=== PATIENT | female | born 1935 | race Caucasian/White ===

== ENCOUNTER 2020-11-11 14:44 | Observation (INO) | payer MEDICARE ==
[~2020-11-11] VITALS: Ht 160 cm; Wt 57.8 kg
[~2020-11-11 14:44] MED LIST: ASPIRIN81 MG PO; ATORVASTATIN CA10 MG PO; AUGMENTIN500 MG OR; BL ASPIRIN325 MG PO; CEPHALEXIN500 MG PO; CLINDAMYCIN150 MG PO; FOSINOPRIL20 MG OR; HYDROCHLORO25 MG/TAB PO; HYDROCHLOROT25 MG PO; LISINOPRIL20 M1 PO; NIASPAN1000 ER OR; NIASPAN500 MG PO; SIMVASTATIN20 MG PO; ST JOSEPH75 MG OR; TOPROL XL PO; ULTRAM50 MG PO; VIT C/ACEROL500 MG PO; VITAMIN D32000 UNIT PO
--- NOTE | 2020-11-11 14:49 | NUR ---
Pt to room # 8 via W/C for bedside triage
[2020-11-11] MEDS ORDERED: NORVASC5 M1 PO (15:10)
[2020-11-11] MEDS ORDERED: ISOSORB MONO30 MG PO (15:10)
[2020-11-11] MEDS ORDERED: OMEPRAZOLE DR40 MG PO (15:11)
[2020-11-11 15:58] LABS: HEMATOCRIT 33.3 % (37.0-47.0); HEMOGLOBIN 10.9 g/dl (12.0-16.0); IMMATURE GRANULOCYTES 0.2 % (0.0-5.0); MEAN CELL VOLUME 91.2 fL CALC (80.0-100.0); MEAN CORPUSCULAR HGB 29.9 pG CALC (26.0-32.0); MEAN CORPUSCULAR HGB CONC 32.7 g/dL CAL (32.0-36.0); NEUT# 4.08 thou/uL (2.00-7.15); RED BLOOD COUNT 3.65 mill/uL (4.20-5.60)
[2020-11-11 16:26] LABS: ACT PARTIAL THROMBO TIME 21.9 SECONDS (20.0-32.5); ALBUMIN 3.8 g/dL (3.2-5.0); ALKALINE PHOSPHATASE 62 u/l (38-126); AMYLASE 107 u/l (30-110); BUN 17 mg/dL (8-23); BUN/CREATININE RATIO 11 (12-20 (CALC)); CARBON DIOXIDE 24 mmol/l (22-30); CHLORIDE 106 mmol/l (95-108); CREATININE 1.6 mg/dL (0.5-1.0); GFR 31 ML/MIN (>=60 (CALC)); GFR FOR AFR.AMER. 37 ML/MIN (>=60 (CALC)); LIPASE 114 u/l (23-300); MAGNESIUM 1.2 mg/dL (1.6-2.3); PROTHROMBIN TIME 10.4 SECONDS (9.0-12.5); SGOT/AST 25 u/l (9-36); SODIUM 139 mmol/l (137-146); TOTAL PROTEIN 6.5 g/dL (6.3-8.2)
[2020-11-11 16:27] LABS: ANION GAP 13 (6-22 (CALC))
[2020-11-11 16:31] LABS: POTASSIUM 3.7 mmol/l (3.5-5.1)
--- NOTE | 2020-11-11 16:45 | NUR ---
PT ADVISED OF WAIT TIME FOR TEST RESULTS. VSS. CALL LIGHT WITHIN REACH.
--- NOTE | 2020-11-11 17:30 | NUR ---
NEED FOR MAG DISCUSSED W/PT. PT AGREED TO HAVE MAG IV FOR LOW LEVEL VIA IV.
--- NOTE | 2020-11-11 19:02 | NUR ---
REPORT PROVIDED TO MEDARDO NOLAND
--- NOTE | 2020-11-11 19:17 | NUR ---
REPORT FROM DANITZA BATRES IN ED.
--- NOTE | 2020-11-11 19:19 | NUR ---
REPORT CALLED TO KEL NURSE ON [facility] ADVISED OF ALL EVENTS AND ATTACHMENTS. PT STABLE VSS. AWARE OF PENDING ADMIT.
--- NOTE | 2020-11-11 19:30 | NUR ---
PT TO [facility] VIA WC ON TELEMETRY. IV SITE HEALTHY. VSS. NO APPARENT DISTRESS.
[2020-11-11 19:35] VITALS: BP 137/67
--- NOTE | 2020-11-11 19:35 | NUR ---
PT ARRIVED TO FLOOR VIA STRETCHER ACCOMPAINED BY ER STAFF. PT ALERT AND ORIENTED X4. AMBULATORY FROM STRETCHER TO BED. SKIN INTACT. OUTDOOR STUDIES PROFESSOR IN PLACE. IV SITE APPEARS HEALTHY, SL TO RFA. PT ADMITTED FOR CP AND LOW MAGNESIUM, PT STATES FELT WEAK FOR ABOUT A WEEK, POOR FOOD INTAKE DUE TO TROUBLE SWALLOWING. PT LIVES AT HOME WITH THAT HAS DEMENTIA. DISCUSSED POC. PT VERBALIZED UNDERSTANDING. ORIENTED TO ROOM AND CALL LIGHT SYSTEM AT THIS TIME. CALL LIGHT WITHIN REACH. WILL CONTINUE TO MONITOR.
--- NOTE | 2020-11-11 23:06 | NUR ---
PT RESTING IN BED. NO APPARENT DISTRESS NOTED. RESPIRATIONS EVEN AND UNLABORED. PT DENIES ANY PAIN OR SOB AT THIS TIME. URINE SAMPLE OBTAIN AND SENT TO LAB ORDERED IN ED. NO CURRENT WANTS OR NEEDS. CALL LIGHT WITHIN REACH. WILL CONTINUE TO MONITOR.
[2020-11-11 23:19] LABS: URINE BILIRUBIN - DIPSTICK NEGATIVE (NEGATIVE); URINE BLOOD DIPSTICK NEGATIVE (NEGATIVE); URINE COLOR YELLOW; URINE GLUCOSE - DIPSTICK NEGATIVE (NEGATIVE); URINE KETONE NEGATIVE (NEGATIVE); URINE LEUK ESTERASE NEGATIVE (NEGATIVE); URINE NITRITE - DIPSTICK NEGATIVE (Negative); URINE PROTEIN - DIPSTICK NEGATIVE (NEG-TRACE); URINE UROBILINOGEN - DIPSTICK 0.2 E.U./dL (0.2)
[2020-11-12 00:02] VITALS: BP 122/61
--- NOTE | 2020-11-12 03:11 | NUR ---
ASSESSMENT ANALYST IN ROOM AT THIS TIME TO OBTAIN LABS.
[2020-11-12 03:48] LABS: CHOLESTEROL HDL RATIO 1.9 (<4.4 (CALC)); MAGNESIUM 1.4 mg/dL (1.6-2.3)
--- NOTE | 2020-11-12 04:34 | NUR ---
PT RESTING IN BED WITH EYES CLOSED. NO APPARENT DISTRESS NOTED. RESPIRATIONS EVEN AND UNLABORED. HAND PACKER/PACKAGER IN PLACE. CALL LIGHT WITHIN REACH. WILL CONTINUE TO MONITOR.
[2020-11-12 04:45] VITALS: BP 120/49
--- NOTE | 2020-11-12 08:03 | NUR ---
PATIENT IS EATING BREAKFAST WITH NO S/S OF DISTRESS NOTED. ASSESSMENT DONE. PATIENT DENIES PAIN AT THIS TIME. RESPS EVEN AND UNLABORED. PATIENT DENIES ANY NEEDS AT THIS TIME. SAFETY PRECAUTIONS REINFORCED AND CALL LIGHT IN REACH.
[2020-11-12 08:20] VITALS: BP 150/68
[2020-11-12] MEDS ORDERED: MAG OXIDE400 MG PO (09:49)
[2020-11-12 11:14] VITALS: BP 117/65
--- NOTE | 2020-11-12 13:34 | NUR ---
Discharge instructions given. Patient verbalizes understanding of same. Discharged in stable condition via Wheelchair to Home with staff. All belongings sent with pt.
== END 2020-11-12 13:34 | disposition home or self-care (01) ==
LOC: ED 14:44 → ED-I 18:16 → ED 18:25 → MS2 18:26
PROVIDERS: ADMIT Internal Medicine; ATTEND Internal Medicine
DX: R07.9 Chest pain, unspecified (principal); R55 Syncope and collapse; E83.42 Hypomagnesemia; I71.4 Abdominal aortic aneurysm, without rupture; I10 Essential (primary) hypertension; E78.5 Hyperlipidemia, unspecified; K21.9 Gastro-esophageal reflux disease without esophagitis; Z85.038 Personal history of other malignant neoplasm of large intestine; Z20.828 Contact with and (suspected) exposure to other viral communicable diseases
CPT/HCPCS: J3475

== ENCOUNTER 2022-07-08 22:32 | Emergency (ER) | payer MEDICARE ==
[~2022-07-08] VITALS: Ht 160 cm; Wt 48.1 kg
[~2022-07-08 22:32] MED LIST changes: +ISOSORB MONO30 MG PO; +MAG OXIDE400 MG PO; +NORVASC5 M1 PO; +OMEPRAZOLE DR40 MG PO
[2022-07-08 22:47] VITALS: BP 197/86
[2022-07-08 23:15] VITALS: BP 168/71
[2022-07-08 23:23] LABS: HEMATOCRIT 31.8 % (37.0-47.0); HEMOGLOBIN 10.3 g/dl (12.0-16.0); MEAN CORPUSCULAR HGB 30.1 pG CALC (26.0-32.0); MEAN CORPUSCULAR HGB CONC 32.4 g/dL CAL (32.0-36.0); NEUT# 2.53 thou/uL (2.00-7.15); RED BLOOD COUNT 3.42 mill/uL (4.20-5.60); RED CELL DISTRI WIDTH 14.7 % (11.5-15.5)
[2022-07-08 23:37] LABS: ALBUMIN 3.9 g/dL (3.2-5.0); BILIRUBIN, TOTAL 0.4 mg/dL (0.0-1.4); CREATININE 1.3 mg/dL (0.5-1.0); POTASSIUM 4.1 mmol/l (3.5-5.1); TOTAL PROTEIN 6.8 g/dL (6.3-8.2)
[2022-07-09 00:38] VITALS: BP 159/82
[2022-07-09 01:06] VITALS: BP 188/89
[2022-07-09 01:20] VITALS: BP 168/85
== END 2022-07-09 01:20 ==
LOC: ED 22:32
PROVIDERS: Emergency Medicine
PROC: 2W38X1Z Immobilization of Right Upper Extremity using Splint (ICD-10-PCS; principal; 2022-07-08)
PROC: 0HQLXZZ Repair Left Lower Leg Skin, External Approach (ICD-10-PCS; 2022-07-08)
DX: S42.201A Unspecified fracture of upper end of right humerus, initial encounter for closed fracture (principal); S81.812A Laceration without foreign body, left lower leg, initial encounter; I10 Essential (primary) hypertension; W01.0XXA Fall on same level from slipping, tripping and stumbling without subsequent striking against object, initial encounter; Y92.009 Unspecified place in unspecified non-institutional (private) residence as the place of occurrence of the external cause

== ENCOUNTER 2022-08-04 16:43 | Emergency (ER) | payer MEDICARE ==
[2022-08-04] VITALS (16 sets, daily range): BP systolic 176–201; BP diastolic 79–98
[~2022-08-04] VITALS: Ht 160 cm; Wt 48.6 kg
[2022-08-04 18:12] LABS: HEMATOCRIT 30.1 % (37.0-47.0); HEMOGLOBIN 9.7 g/dl (12.0-16.0); IMMATURE GRANULOCYTES 0.2 % (0.0-5.0); MEAN CELL VOLUME 99.3 fL CALC (80.0-100.0); MEAN CORPUSCULAR HGB CONC 32.2 g/dL CAL (32.0-36.0); NEUT# 4.08 thou/uL (2.00-7.15); RED BLOOD COUNT 3.03 mill/uL (4.20-5.60); RED CELL DISTRI WIDTH 16.1 % (11.5-15.5)
[2022-08-04 18:26] LABS: ALBUMIN 4.1 g/dL (3.2-5.0); CREATININE 1.1 mg/dL (0.5-1.0); POTASSIUM 4.3 mmol/l (3.5-5.1); TOTAL PROTEIN 6.8 g/dL (6.3-8.2)
[2022-08-04] MEDS ORDERED: LORTAB 1010 MG PO (20:45)
== END 2022-08-04 21:17 | disposition home or self-care (01) ==
LOC: ED 16:43
PROVIDERS: Family Medicine
PROC: 2W38X1Z Immobilization of Right Upper Extremity using Splint (ICD-10-PCS; principal; 2022-08-04)
DX: S42.291A Other displaced fracture of upper end of right humerus, initial encounter for closed fracture (principal); I10 Essential (primary) hypertension; X58.XXXA Exposure to other specified factors, initial encounter; Z86.718 Personal history of other venous thrombosis and embolism; Z85.038 Personal history of other malignant neoplasm of large intestine

== ENCOUNTER 2022-08-08 08:08 | Inpatient (IN) | payer MEDICARE ==
[~2022-08-08] VITALS: Ht 160 cm; Wt 54.0 kg
[2022-08-08] VITALS (14 sets, daily range): BP systolic 154–198; BP diastolic 52–80
[~2022-08-08 08:08] MED LIST changes: +LORTAB 1010 MG PO
[2022-08-08 08:43] LABS: HEMATOCRIT 29.7 % (37.0-47.0); HEMOGLOBIN 9.8 g/dl (12.0-16.0); IMMATURE GRANULOCYTES 0.1 % (0.0-5.0); MEAN CELL VOLUME 96.1 fL CALC (80.0-100.0); MEAN CORPUSCULAR HGB 31.7 pG CALC (26.0-32.0); NEUT# 5.23 thou/uL (2.00-7.15); RED BLOOD COUNT 3.09 mill/uL (4.20-5.60); RED CELL DISTRI WIDTH 16.1 % (11.5-15.5)
[2022-08-08 08:59] LABS: ALBUMIN 4.4 g/dL (3.2-5.0); ALKALINE PHOSPHATASE 70 u/l (38-126); ANION GAP 13 (6-22 (CALC)); BILIRUBIN, TOTAL 0.9 mg/dL (0.0-1.4); BUN 22 mg/dL (8-23); BUN/CREATININE RATIO 22 (12-20 (CALC)); CARBON DIOXIDE 30 mmol/l (22-30); CHLORIDE 93 mmol/l (95-108); GFR FOR AFR.AMER. > 60 ML/MIN (>=60 (CALC)); GFR OTHER RACES 53 ML/MIN (>=60 (CALC)); LIPASE 170 u/l (23-300); MAGNESIUM 1.5 mg/dL (1.6-2.3); POTASSIUM 4.2 mmol/l (3.5-5.1); SGOT/AST 23 u/l (9-36); SODIUM 131 mmol/l (137-146); TOTAL PROTEIN 7.2 g/dL (6.3-8.2)
[2022-08-08 11:19] LABS: URINE BILIRUBIN - DIPSTICK NEGATIVE (NEGATIVE); URINE BLOOD DIPSTICK NEGATIVE (NEGATIVE); URINE COLOR YELLOW; URINE GLUCOSE - DIPSTICK NEGATIVE (NEGATIVE); URINE KETONE TRACE mg/dL (NEGATIVE); URINE LEUK ESTERASE NEGATIVE (NEGATIVE); URINE PROTEIN - DIPSTICK NEGATIVE (NEG-TRACE); URINE UROBILINOGEN - DIPSTICK 0.2 E.U./dL (0.2)
[2022-08-08 11:20] LABS: URINE NITRITE - DIPSTICK NEGATIVE (Negative)
[2022-08-08] MEDS ORDERED: BUPROPION150 M3 PO (13:10)
[2022-08-08] MEDS ORDERED: CVS STOOL SOFT100 MG PO (13:14)
[2022-08-09] VITALS (8 sets, daily range): BP systolic 129–195; BP diastolic 59–69
[2022-08-09 07:24] LABS: HEMOGLOBIN 10.7 g/dl (12.0-16.0); IMMATURE GRANULOCYTES 0.2 % (0.0-5.0); MEAN CELL VOLUME 94.4 fL CALC (80.0-100.0); MEAN CORPUSCULAR HGB 31.6 pG CALC (26.0-32.0); MEAN CORPUSCULAR HGB CONC 33.4 g/dL CAL (32.0-36.0); NEUT# 4.53 thou/uL (2.00-7.15); RED BLOOD COUNT 3.39 mill/uL (4.20-5.60); RED CELL DISTRI WIDTH 16.2 % (11.5-15.5)
[2022-08-09 07:42] LABS: ALBUMIN 4.2 g/dL (3.2-5.0); ALKALINE PHOSPHATASE 66 u/l (38-126); ANION GAP 11 (6-22 (CALC)); BILIRUBIN, TOTAL 0.8 mg/dL (0.0-1.4); BUN 22 mg/dL (8-23); BUN/CREATININE RATIO 24 (12-20 (CALC)); C-REACTIVE PROTEIN 1.3 mg/dL (0-0.9); CARBON DIOXIDE 30 mmol/l (22-30); CHLORIDE 95 mmol/l (95-108); CREATININE 0.9 mg/dL (0.5-1.0); GFR FOR AFR.AMER. > 60 ML/MIN (>=60 (CALC)); GFR OTHER RACES 60 ML/MIN (>=60 (CALC)); POTASSIUM 4.2 mmol/l (3.5-5.1); SGOT/AST 25 u/l (9-36); SODIUM 132 mmol/l (137-146); TOTAL PROTEIN 6.4 g/dL (6.3-8.2)
[2022-08-10] VITALS (8 sets, daily range): BP systolic 155–196; BP diastolic 56–80
[2022-08-10 05:19] LABS: HEMATOCRIT 31.4 % (37.0-47.0); HEMOGLOBIN 10.6 g/dl (12.0-16.0); IMMATURE GRANULOCYTES 0.2 % (0.0-5.0); MEAN CORPUSCULAR HGB 31.7 pG CALC (26.0-32.0); MEAN CORPUSCULAR HGB CONC 33.8 g/dL CAL (32.0-36.0); NEUT# 5.03 thou/uL (2.00-7.15); RED BLOOD COUNT 3.34 mill/uL (4.20-5.60); RED CELL DISTRI WIDTH 16.7 % (11.5-15.5)
[2022-08-10 05:45] LABS: ALBUMIN 3.4 g/dL (3.2-5.0); ALKALINE PHOSPHATASE 55 u/l (38-126); ANION GAP 9 (6-22 (CALC)); BILIRUBIN, TOTAL 0.7 mg/dL (0.0-1.4); BUN 19 mg/dL (8-23); BUN/CREATININE RATIO 23 (12-20 (CALC)); CARBON DIOXIDE 32 mmol/l (22-30); CHLORIDE 97 mmol/l (95-108); CREATININE 0.9 mg/dL (0.5-1.0); GFR FOR AFR.AMER. > 60 ML/MIN (>=60 (CALC)); GFR OTHER RACES 60 ML/MIN (>=60 (CALC)); MAGNESIUM 2.1 mg/dL (1.6-2.3); SGOT/AST 20 u/l (9-36); SODIUM 133 mmol/l (137-146); TOTAL PROTEIN 5.4 g/dL (6.3-8.2)
[2022-08-11] VITALS (11 sets, daily range): BP systolic 152–186; BP diastolic 66–91
[2022-08-11 05:55] LABS: HEMATOCRIT 30.3 % (37.0-47.0); IMMATURE GRANULOCYTES 0.2 % (0.0-5.0); MEAN CELL VOLUME 95.9 fL CALC (80.0-100.0); MEAN CORPUSCULAR HGB 31.6 pG CALC (26.0-32.0); NEUT# 3.48 thou/uL (2.00-7.15); RED BLOOD COUNT 3.16 mill/uL (4.20-5.60); RED CELL DISTRI WIDTH 16.4 % (11.5-15.5)
[2022-08-11 06:14] LABS: ALBUMIN 3.5 g/dL (3.2-5.0); ALKALINE PHOSPHATASE 65 u/l (38-126); ANION GAP 8 (6-22 (CALC)); BILIRUBIN, TOTAL 0.7 mg/dL (0.0-1.4); BUN 16 mg/dL (8-23); BUN/CREATININE RATIO 18 (12-20 (CALC)); C-REACTIVE PROTEIN 1.5 mg/dL (0-0.9); CARBON DIOXIDE 30 mmol/l (22-30); CHLORIDE 98 mmol/l (95-108); CREATININE 0.9 mg/dL (0.5-1.0); GFR FOR AFR.AMER. > 60 ML/MIN (>=60 (CALC)); GFR OTHER RACES 60 ML/MIN (>=60 (CALC)); POTASSIUM 3.8 mmol/l (3.5-5.1); SGOT/AST 20 u/l (9-36); SODIUM 133 mmol/l (137-146); TOTAL PROTEIN 5.6 g/dL (6.3-8.2)
[2022-08-12] VITALS (7 sets, daily range): BP systolic 134–173; BP diastolic 62–84
[2022-08-12] MEDS ORDERED: LORTAB 1010 MG PO (12:53)
[2022-08-13 00:12] VITALS: BP 144/68
[2022-08-13 04:22] VITALS: BP 163/72
[2022-08-13 05:29] LABS: HEMOGLOBIN 8.3 g/dl (12.0-16.0); MEAN CELL VOLUME 95.4 fL CALC (80.0-100.0); MEAN CORPUSCULAR HGB 31.7 pG CALC (26.0-32.0); MEAN CORPUSCULAR HGB CONC 33.2 g/dL CAL (32.0-36.0); RED BLOOD COUNT 2.62 mill/uL (4.20-5.60); RED CELL DISTRI WIDTH 16.5 % (11.5-15.5)
[2022-08-13 05:41] LABS: ANION GAP 6 (6-22 (CALC)); BUN 13 mg/dL (8-23); BUN/CREATININE RATIO 18 (12-20 (CALC)); CARBON DIOXIDE 29 mmol/l (22-30); CHLORIDE 102 mmol/l (95-108); CREATININE 0.8 mg/dL (0.5-1.0); GFR FOR AFR.AMER. > 60 ML/MIN (>=60 (CALC)); GFR OTHER RACES > 60 ML/MIN (>=60 (CALC)); MAGNESIUM 1.6 mg/dL (1.6-2.3); POTASSIUM 3.3 mmol/l (3.5-5.1); SODIUM 133 mmol/l (137-146)
[2022-08-13 07:32] VITALS: BP 159/79
[2022-08-13 10:55] VITALS: BP 152/78
== END 2022-08-13 14:20 | DRG 562 ==
LOC: ED 08:08 → ED-I 11:17 → ED 11:31 → MS2 11:32
PROVIDERS: Family Medicine; Nurse Practitioner; ADMIT Internal Medicine; ATTEND Internal Medicine
DX: S42.341A Displaced spiral fracture of shaft of humerus, right arm, initial encounter for closed fracture (principal); U07.1 COVID-19; R53.1 Weakness; R62.7 Adult failure to thrive; I10 Essential (primary) hypertension; I25.10 Atherosclerotic heart disease of native coronary artery without angina pectoris; E83.42 Hypomagnesemia; R13.10 Dysphagia, unspecified; E78.5 Hyperlipidemia, unspecified; K21.9 Gastro-esophageal reflux disease without esophagitis; I71.4 Abdominal aortic aneurysm, without rupture; W19.XXXA Unspecified fall, initial encounter; S30.810A Abrasion of lower back and pelvis, initial encounter; X58.XXXA Exposure to other specified factors, initial encounter; Z68.21 Body mass index [BMI] 21.0-21.9, adult; Z86.718 Personal history of other venous thrombosis and embolism; Z90.49 Acquired absence of other specified parts of digestive tract; Z85.038 Personal history of other malignant neoplasm of large intestine; Z95.820 Peripheral vascular angioplasty status with implants and grafts
CPT/HCPCS: G0378; J1650; J3475

== ENCOUNTER 2022-10-26 16:23 | Observation (INO) | payer MEDICARE ==
[2022-10-26] VITALS (12 sets, daily range): BP systolic 133–186; BP diastolic 56–85
[~2022-10-26] VITALS: Ht 160 cm; Wt 40.9 kg
[~2022-10-26 16:23] MED LIST changes: +BUPROPION150 M3 PO; +CVS STOOL SOFT100 MG PO
--- NOTE | 2022-10-26 16:24 | NUR ---
PT TO ROOM WITH STEADY GAIT
[2022-10-26 16:46] LABS: HEMATOCRIT 31.1 % (37.0-47.0); HEMOGLOBIN 10.1 g/dl (12.0-16.0); IMMATURE GRANULOCYTES 0.1 % (0.0-5.0); MEAN CELL VOLUME 96.9 fL CALC (80.0-100.0); MEAN CORPUSCULAR HGB 31.5 pG CALC (26.0-32.0); MEAN CORPUSCULAR HGB CONC 32.5 g/dL CAL (32.0-36.0); NEUT# 6.16 thou/uL (2.00-7.15); RED BLOOD COUNT 3.21 mill/uL (4.20-5.60); RED CELL DISTRI WIDTH 13.7 % (11.5-15.5)
[2022-10-26 17:00] LABS: ALBUMIN 3.7 g/dL (3.2-5.0); ALKALINE PHOSPHATASE 56 u/l (38-126); ANION GAP 10 (6-22 (CALC)); BILIRUBIN, TOTAL 0.5 mg/dL (0.0-1.4); BUN 30 mg/dL (8-23); BUN/CREATININE RATIO 25 (12-20 (CALC)); CARBON DIOXIDE 31 mmol/l (22-30); CHLORIDE 99 mmol/l (95-108); CREATININE 1.2 mg/dL (0.5-1.0); GFR FOR AFR.AMER. 52 ML/MIN (>=60 (CALC)); GFR OTHER RACES 43 ML/MIN (>=60 (CALC)); POTASSIUM 3.8 mmol/l (3.5-5.1); SGOT/AST 19 u/l (9-36); SODIUM 136 mmol/l (137-146); TOTAL PROTEIN 6.1 g/dL (6.3-8.2)
[2022-10-26] MEDS ORDERED: TOPROL XL25 MG PO (17:06)
[2022-10-26] MEDS ORDERED: HYDROCHLOROTH12.5 M1 PO (17:09)
[2022-10-26] MEDS ORDERED: ACETAMINOP160 MG/5 M PO (17:11)
--- NOTE | 2022-10-26 19:00 | NUR ---
PT. REQUESTING IV BE REMOVED FROM LEFT AC AND STARTED IN RIGHT WRIST OR HAND. PT. DENIES C/O C/P OR DISCOMFORT, DENIES SOB, NAUSEA OR VOMITING
--- NOTE | 2022-10-26 19:11 | NUR ---
ASSUMED CARE OF PT. PT. CALLED USING CALL LIGHT REQUESTING IV BE REMOVED FROM LEFT AC STATES "IT HURTS WHEN I MOVE IT AND I'M LEFT HANDED, I HAVE LIMITED USE OF MY RIGHT ARM I HAD SURGERY OF RIGHT HUMERAL HEAD". PT. REQUESTING IV TO BE PUT IN RIGHT WRIST OR HAND.
--- NOTE | 2022-10-26 19:45 | NUR ---
REPORT CALLED TO HUGH JOSE:ADMIT.
--- NOTE | 2022-10-26 19:55 | NUR ---
TRANSPORTED VIA , TELE IN PLACE TO [phone]
--- NOTE | 2022-10-26 20:02 | NUR ---
PT ARRIVED TO MS2 VIA WHEELCHAIR, PT ALERT AND ORIENTED X4, AMBULATED WITH STEADY GAIT WITHOUT ASSISTANCE TO BED. ORIENTED PT TO ROOM AND CALL LIGHT, DISCUSSED POC, VERBALIZED UNDERSTANDING. NO EDEMA. PT GIVEN DINNER TRAY. ADMISSION ASSESSMENT COMPLETED, PT DENIES ANY CHEST PAIN OR DISCOMFORT AT THIS TIME. CALL LIGHT IN REACH,CONTINUE TO MONITOR.
--- NOTE | 2022-10-27 | NUR ---
PT RESTING IN BED, NO SIGNS OF DISTRESS NOTED, RESP EVEN AND UNLABORED. VITALS OBTAINED, PT MEDICATED PER MAR. CALL LIGHT IN REACH,CONTINUE TO MONITOR.
[2022-10-27 02:19] LABS: CHOLESTEROL HDL RATIO 2.5 (<4.4 (CALC)); MAGNESIUM 1.2 mg/dL (1.6-2.3)
[2022-10-27 03:43] VITALS: BP 171/74
[2022-10-27 06:55] VITALS: BP 159/66
--- NOTE | 2022-10-27 07:55 | NUR ---
BEDSIDE REPORT RECEIVED FROM MEDARDO MEJÍA. PT RESTING QUEITLY IN BED WITH EYES OPEN. PT C/O RIGHT ARM PAIN DUE TO PREVIOUS SURGERY, PRN MEDS GIVEN. NO C/O CHEST PAIN VOICED AT THIS TIME. NO SIGNS OF DISTRESS NOTED. STAFF WILL CONTINUE TO MONITOR.
[2022-10-27 10:22] VITALS: BP 144/69
--- NOTE | 2022-10-27 16:21 | NUR ---
IV REMOVED WITH TIP INTACT, NO IV RELATED COMPLICATIONS NOTED. TELEMETRY REMOVED. DC INSTRUCTIONS EXPLAINED TO PATIENT, PATIENT VERBALIZES UNDERSTANDING AND DENIES QUESTIONS. EDUCATION PROVIDED ON CHEST PAIN AND LOW SODIUM DIET, PT VERBALIZES UNDERSTANDING. NO PRESCRIPTIONS PROVIDED AT THIS TIME. PT DISCHARGED HOME WITH SON VIA WC WITH ALL PERSONAL BELONGINGS AT 1620.
== END 2022-10-27 16:20 | disposition home or self-care (01) ==
LOC: ED 16:23 → ED-I 17:49 → ED 18:01 → MS2 18:01
PROVIDERS: Family Medicine; ADMIT Internal Medicine; ATTEND Internal Medicine
DX: R07.9 Chest pain, unspecified (principal); I10 Essential (primary) hypertension; I25.10 Atherosclerotic heart disease of native coronary artery without angina pectoris; E78.5 Hyperlipidemia, unspecified; K21.9 Gastro-esophageal reflux disease without esophagitis; I71.9 Aortic aneurysm of unspecified site, without rupture; E83.42 Hypomagnesemia; D50.9 Iron deficiency anemia, unspecified; Z95.5 Presence of coronary angioplasty implant and graft; Z86.718 Personal history of other venous thrombosis and embolism; Z85.038 Personal history of other malignant neoplasm of large intestine
CPT/HCPCS: J1650; J3475

== ENCOUNTER 2024-05-26 12:36 | Inpatient (IN) | payer MEDICARE ==
[2024-05-26] VITALS (14 sets, daily range): BP systolic 117–158; BP diastolic 56–87
[~2024-05-26] VITALS: Ht 160 cm; Wt 47.0 kg
[~2024-05-26 12:36] MED LIST changes: +ACETAMINOP160 MG/5 M PO; +ACETAMINOPHEN325 MG PO; +AMLODIPINE BESYL5 MG PO; +ASPIRINCHW 81MG PO; +HYDROCHLOROTH12.5 M1 PO; +TOPROL XL25 MG PO; +TRAMADOL HCL50 MG PO
[2024-05-26] MEDS ORDERED: VANCOMYCIN HCL 1 GM in SODIUM CHLORIDE 0.9% 250 ML IV ONE (13:10)
[2024-05-26] MEDS ORDERED: cefTRIAXone SODIUM 2 GM in SODIUM CHLORIDE 0.9% 100 ML IV ONE (13:10)
[2024-05-26] MEDS ORDERED: LIDOcaine HCl 1% (Local Anesth.) 20 ML VIAL STI STA (13:16)
[2024-05-26] MEDS ORDERED: POVIDONE IODINE 0.5 OZ/BTL TOP ONE (13:20)
[2024-05-26 13:37] LABS: BASO% 0.3 % (0-3); EOS% 0.2 % (0-8); HEMATOCRIT 30.9 % (37.0-47.0); HEMOGLOBIN 9.4 g/dl (12.0-16.0); IMMATURE GRANULOCYTES 0.4 % (0.0-5.0); LYMPH% 11.7 % (15-41); MEAN CELL VOLUME 92.8 fL CALC (80.0-100.0); MEAN CORPUSCULAR HGB 28.2 pG CALC (26.0-32.0); MEAN CORPUSCULAR HGB CONC 30.4 g/dL CAL (32.0-36.0); MONO% 6.4 % (2-13); NEUT# 9.71 thou/uL (2.00-7.15); RED BLOOD COUNT 3.33 mill/uL (4.20-5.60); RED CELL DISTRI WIDTH 15.6 % (11.5-15.5)
[2024-05-26 13:52] LABS: ALBUMIN 2.8 g/dL (3.2-5.0); BILIRUBIN, TOTAL 0.6 mg/dL (0.02-1.3); CREATININE 1.9 mg/dL (0.5-1.0); POTASSIUM 4.8 mmol/l (3.5-5.1); TOTAL PROTEIN 5.9 g/dL (6.3-8.2)
[2024-05-26] MEDS ORDERED: SODIUM CHLORIDE 0.9% 1,000 ML IV ONE (14:10)
[2024-05-26] MEDS ORDERED: ONDANSETRON HCl 4 MG/2 ML SDV IV ONE (15:40)
[2024-05-26] MEDS ORDERED: MORPHINE SULFATE 4 MG/ML VIAL IV ONE (15:40)
[2024-05-26] MEDS ORDERED: ACETAMINOPHEN 325 MG/TAB PO PRN (17:20)
[2024-05-26] MEDS ORDERED: SODIUM CHLORIDE 0.9% 1,000 ML IV PRN (17:20)
[2024-05-26] MEDS ORDERED: traMADol HCL 50 MG/TAB PO PRN (17:20)
[2024-05-26] MEDS ORDERED: MAGNESIUM HYDROXIDE 30 ML UDC PO PRN (17:20)
[2024-05-26] MEDS ORDERED: ENOXAPARIN SODIUM 40 MG/0.4 ML SYR SC SCH (21:00)
[2024-05-26] MEDS ORDERED: ENOXAPARIN SODIUM 30 MG/0.3 ML INJ SC SCH (21:00)
[2024-05-26] MEDS ORDERED: ONDANSETRON ODT8 MG PO (22:18)
[2024-05-26] MEDS ORDERED: MIRTAZAPINE15 MG PO (22:18)
[2024-05-26] MEDS ORDERED: METOPROLOL100 M1 PO (22:19)
[2024-05-26] MEDS ORDERED: FUROSEMIDE20 MG PO (22:19)
[2024-05-26] MEDS ORDERED: BUPROPN HCL300 MG PO (22:22)
[2024-05-27] VITALS (10 sets, daily range): BP systolic 108–132; BP diastolic 50–69
[2024-05-27] MEDS ORDERED: PANTOPRAZOLE SODIUM Sesquihydr 40 MG/TAB PO SCH (09:00)
[2024-05-27] MEDS ORDERED: buPROPion HCL 150 MG TAB SR PO SCH (09:00)
[2024-05-27] MEDS ORDERED: ASPIRIN 81 MG/TAB PO SCH (09:00)
[2024-05-27] MEDS ORDERED: METOPROLOL SUCCINATE 25 MG/TAB-TOPROL XL PO SCH (09:00)
[2024-05-27 09:51] LABS: HEMATOCRIT 28.9 % (37.0-47.0); HEMOGLOBIN 8.8 g/dl (12.0-16.0); MEAN CELL VOLUME 94.1 fL CALC (80.0-100.0); MEAN CORPUSCULAR HGB 28.7 pG CALC (26.0-32.0); MEAN CORPUSCULAR HGB CONC 30.4 g/dL CAL (32.0-36.0); RED BLOOD COUNT 3.07 mill/uL (4.20-5.60); RED CELL DISTRI WIDTH 15.6 % (11.5-15.5)
[2024-05-27 10:00] LABS: ALBUMIN 2.6 g/dL (3.2-5.0); CREATININE 1.4 mg/dL (0.5-1.0); POTASSIUM 4.5 mmol/l (3.5-5.1); TOTAL PROTEIN 5.5 g/dL (6.3-8.2)
[2024-05-27 10:02] LABS: BILIRUBIN, TOTAL 0.3 mg/dL (0.02-1.3)
[2024-05-27] MEDS ORDERED: cefTRIAXone SODIUM 2 GM in SODIUM CHLORIDE 0.9% 100 ML IV SCH (18:00)
[2024-05-27] MEDS ORDERED: ATORVASTATIN CALCIUM 10 MG/TAB PO SCH (21:00)
[2024-05-28] VITALS (17 sets, daily range): BP systolic 110–149; BP diastolic 49–68
[2024-05-28 05:19] LABS: BASO% 0.4 % (0-3); EOS% 0.3 % (0-8); HEMATOCRIT 24.1 % (37.0-47.0); HEMOGLOBIN 7.4 g/dl (12.0-16.0); IMMATURE GRANULOCYTES 0.4 % (0.0-5.0); LYMPH% 15.6 % (15-41); MEAN CELL VOLUME 93.8 fL CALC (80.0-100.0); MEAN CORPUSCULAR HGB 28.8 pG CALC (26.0-32.0); MEAN CORPUSCULAR HGB CONC 30.7 g/dL CAL (32.0-36.0); MONO% 7.9 % (2-13); NEUT# 6.73 thou/uL (2.00-7.15); NEUT% 75.4 % (42-76); RED BLOOD COUNT 2.57 mill/uL (4.20-5.60); RED CELL DISTRI WIDTH 15.7 % (11.5-15.5)
[2024-05-28 05:31] LABS: BILIRUBIN, TOTAL 0.2 mg/dL (0.02-1.3); CREATININE 1.4 mg/dL (0.5-1.0); MAGNESIUM 1.2 mg/dL (1.6-2.3); POTASSIUM 3.9 mmol/l (3.5-5.1); TOTAL PROTEIN 4.6 g/dL (6.3-8.2)
[2024-05-28] MEDS ORDERED: MAGNESIUM SULFATE HEPTAHYDRATE 100 ML IV SCH (09:00)
[2024-05-28] MEDS ORDERED: FUROSEMIDE 40 MG/4 ML SDV IV SCH (09:00)
[2024-05-28] MEDS ORDERED: MUPIROCIN (PSEUDOMONAS FLUORES 22 GM/TUBE TUBE TOP SCH (11:00)
[2024-05-28] MEDS ORDERED: HYDROcodone 5 MG/Acetaminophen 325 MG/COMBO PO PRN (11:15)
[2024-05-28 14:21] LABS: URINE BILIRUBIN - DIPSTICK Negative (NEGATIVE); URINE BLOOD DIPSTICK Trace-intact (NEGATIVE); URINE GLUCOSE - DIPSTICK Negative (NEGATIVE); URINE KETONE Negative (NEGATIVE); URINE LEUK ESTERASE Negative (NEGATIVE); URINE NITRITE - DIPSTICK Negative (Negative); URINE PH 5.5 (4.5-8.0); URINE PROTEIN - DIPSTICK Negative (NEG-TRACE); URINE SPECIFIC GRAVITY <=1.005; URINE UROBILINOGEN - DIPSTICK 0.2 E.U./dL (0.2)
[2024-05-28 14:39] LABS: URINE COLOR Yellow
[2024-05-28] MEDS ORDERED: ONDANSETRON HCl 4 MG/2 ML SDV IV PRN (18:00)
[2024-05-29 04:13] VITALS: BP 139/62
[2024-05-29 04:48] VITALS: BP 139/62
[2024-05-29 05:35] LABS: BASO% 0.4 % (0-3); EOS% 0.7 % (0-8); IMMATURE GRANULOCYTES 0.4 % (0.0-5.0); LYMPH% 15.3 % (15-41); MEAN CELL VOLUME 90.6 fL CALC (80.0-100.0); MEAN CORPUSCULAR HGB 29.4 pG CALC (26.0-32.0); MEAN CORPUSCULAR HGB CONC 32.5 g/dL CAL (32.0-36.0); MONO% 9.3 % (2-13); NEUT# 6.06 thou/uL (2.00-7.15); NEUT% 73.9 % (42-76); RED BLOOD COUNT 3.6 mill/uL (4.20-5.60); RED CELL DISTRI WIDTH 15.5 % (11.5-15.5)
[2024-05-29 05:38] LABS: HEMATOCRIT 32.6 % (37.0-47.0); HEMOGLOBIN 10.6 g/dl (12.0-16.0)
[2024-05-29 05:48] LABS: ALBUMIN 2.1 g/dL (3.2-5.0); CREATININE 1.2 mg/dL (0.5-1.0); POTASSIUM 3.7 mmol/l (3.5-5.1); TOTAL PROTEIN 4.7 g/dL (6.3-8.2)
[2024-05-29 05:49] LABS: BILIRUBIN, TOTAL 0.3 mg/dL (0.02-1.3); MAGNESIUM 2.3 mg/dL (1.6-2.3)
[2024-05-29 06:25] VITALS: BP 124/56
[2024-05-29 08:41] VITALS: BP 124/56
[2024-05-29] MEDS ORDERED: MUPIROCIN2 % TOP (09:18)
[2024-05-29] MEDS ORDERED: DOXYCYCLINE100 MG PO (09:19)
== END 2024-05-29 11:17 | disposition home health service (06) | DRG 603 ==
LOC: ED 12:36 → ED-I 15:20 → ED 15:33 → MS2 15:34
PROVIDERS: Family Medicine; Nurse Practitioner Family; ADMIT Internal Medicine; ATTEND Internal Medicine
PROC: 0H9EXZZ Drainage of Left Lower Arm Skin, External Approach (ICD-10-PCS; principal; 2024-05-26)
PROC: 30233N1 Transfusion of Nonautologous Red Blood Cells into Peripheral Vein, Percutaneous Approach (ICD-10-PCS; 2024-05-28)
PROC: 30233N1 Transfusion of Nonautologous Red Blood Cells into Peripheral Vein, Percutaneous Approach (ICD-10-PCS; 2024-05-28)
DX: L02.414 Cutaneous abscess of left upper limb (principal); N17.9 Acute kidney failure, unspecified; L76.31 Postprocedural hematoma of skin and subcutaneous tissue following a dermatologic procedure; L03.114 Cellulitis of left upper limb; I12.9 Hypertensive chronic kidney disease with stage 1 through stage 4 chronic kidney disease, or unspecified chronic kidney disease; D50.9 Iron deficiency anemia, unspecified; N18.9 Chronic kidney disease, unspecified; I25.10 Atherosclerotic heart disease of native coronary artery without angina pectoris; E83.42 Hypomagnesemia; E78.5 Hyperlipidemia, unspecified; I71.9 Aortic aneurysm of unspecified site, without rupture; I73.9 Peripheral vascular disease, unspecified; K21.9 Gastro-esophageal reflux disease without esophagitis; Y83.8 Other surgical procedures as the cause of abnormal reaction of the patient, or of later complication, without mention of misadventure at the time of the procedure; Z85.038 Personal history of other malignant neoplasm of large intestine; Z86.718 Personal history of other venous thrombosis and embolism; Z95.820 Peripheral vascular angioplasty status with implants and grafts; Z90.49 Acquired absence of other specified parts of digestive tract; Z91.81 History of falling
CPT/HCPCS: J1650; J3475; P9016

== ENCOUNTER 2024-11-04 11:00 | Emergency (ER) | payer MEDICARE ==
[~2024-11-04] VITALS: Ht 160 cm; Wt 45.0 kg
[~2024-11-04 11:00] MED LIST changes: +BUPROPN HCL300 MG PO; +DOXYCYCLINE100 MG PO; +FUROSEMIDE20 MG PO; +METOPROLOL100 M1 PO; +MIRTAZAPINE15 MG PO; +MUPIROCIN2 % TOP; +ONDANSETRON ODT8 MG PO
[2024-11-04 11:15] VITALS: BP 182/73
[2024-11-04 11:37] VITALS: BP 184/75
[2024-11-04 12:00] VITALS: BP 182/73
[2024-11-04 12:32] VITALS: BP 182/73
== END 2024-11-04 12:50 | disposition home or self-care (01) ==
LOC: ED 11:00
DX: R55 Syncope and collapse (principal); S01.01XA Laceration without foreign body of scalp, initial encounter; I12.9 Hypertensive chronic kidney disease with stage 1 through stage 4 chronic kidney disease, or unspecified chronic kidney disease; N18.9 Chronic kidney disease, unspecified; I73.9 Peripheral vascular disease, unspecified; Z95.820 Peripheral vascular angioplasty status with implants and grafts; Z91.81 History of falling; Z85.038 Personal history of other malignant neoplasm of large intestine; Z90.49 Acquired absence of other specified parts of digestive tract; Z86.718 Personal history of other venous thrombosis and embolism; W19.XXXA Unspecified fall, initial encounter

== ENCOUNTER → 2025-01-03 | Day surgery (SDC) | payer MEDICARE ==
[~2025-01-03] VITALS: Ht 160 cm; Wt 44.5 kg
[~2025-01-03] MED LIST changes: +ANTI-DIARRHE2 M1 PO; +FAMOTIDINE 10MG/ML 2ML SDV IV ONE; +LACTATED RINGER'S 1,000 ML IV ONE; +LIDOCAINE HCL 2% 2ML SDV IV ONE; +PROPOFOL 200 MG/20 ML VIAL IV ONE; +TRAMADOL HYDROC50 M1; +TYLENOL500 MG PO; +WELLBUTRIN XL300 MG PO
[2025-01-03 12:03] VITALS: BP 155/68
== END | disposition home or self-care (01) ==
LOC: ORM 08:00 → ENDO 08:00 → ORM 13:15
PROVIDERS: ATTEND Surgery
PROC: 0DJ08ZZ Inspection of Upper Intestinal Tract, Via Natural or Artificial Opening Endoscopic (ICD-10-PCS; principal; 2025-01-03)
DX: R13.10 Dysphagia, unspecified (principal); K44.9 Diaphragmatic hernia without obstruction or gangrene; I10 Essential (primary) hypertension; F41.9 Anxiety disorder, unspecified; I73.9 Peripheral vascular disease, unspecified; E78.5 Hyperlipidemia, unspecified; K21.9 Gastro-esophageal reflux disease without esophagitis; Z87.19 Personal history of other diseases of the digestive system; Z86.718 Personal history of other venous thrombosis and embolism